=== PATIENT | female | born 1975 | race Hispanic/Latino ===

== ENCOUNTER 2017-02-14 10:48 | Day surgery (SDC) | payer OTHER ==
[2017-02-14 11:12] VITALS: BMI 19.5
[2017-02-14] MEDS ORDERED: methylPREDNISolone Depo 80 mg/ml Inj ONE (12:16)
[2017-02-14] MEDS ORDERED: Iohexol 300 10 ML ONE (12:17)
[2017-02-14] MEDS ORDERED: Bupivacaine HCl 0.25% PF (10 ml) Inj ONE (12:17)
[2017-02-14] MEDS ORDERED: Lidocaine 1% Inj (20ml) ONE (12:17)
[2017-02-14] MEDS ORDERED: Propofol 10 mg/ml Inj (20 ML) ONE (12:51)
[2017-02-14] MEDS ORDERED: Lactated Ringer's 1,000 ML IV ONE (12:55)
[2017-02-14] MEDS ORDERED: HYDROmorphone 0.5 mg/0.5 ml ISec ONE ×2 (13:33→13:46)
[2017-02-14] MEDS ORDERED: HYDROmorphone 0.5 mg/0.5 ml ISec IVP PRN (13:43)
[2017-02-14] MEDS: HYDROmorphone 0.5 mg/0.5 ml ISec IVP PRN ×2 (13:45→14:00)
[2017-02-14] MEDS ORDERED: Lactated Ringer's 1,000 ML IV SCH (13:45)
--- NOTE | 2017-02-14 14:39 | RAD ---
PROCEDURE: Fluoroscopy up to 1 hr. Lumbar epidural injection. HISTORY: PAIN MANAGEMENT COMPARISON: None TECHNIQUE: Standard protocol for this study/examination. FINDINGS: Total fluoroscopic time (continuous mode) utilized during the procedure: 40.4 seconds. Submitted images from the current procedure: 3.0 IMPRESSION: Less than 1 hr fluoroscopic time utilized during performance of the procedure.
[2017-02-14 14:45] VITALS: O2SAT 98
[2017-02-14 14:50] VITALS: BP 143/70; PULSE 68; RESP 18; TEMP 98.2
--- NOTE | 2017-02-15 00:32 | OP ---
PROCEDURE DATE: 02/14/2017 PREOPERATIVE DIAGNOSIS: Lumbar spondylosis. POSTOPERATIVE DIAGNOSIS: Lumbar spondylosis. PROCEDURE: Bilateral L5-S1 transforaminal epidural steroid injection and left L3, L4 and L5 medial branch nerve block. SURGEON: Dr. Wallace. HOT SEALING MACHINE OPERATOR: ANESTHESIA ADMINISTERED: Dr. Koroma. TYPE OF ANESTHESIA: Monitored anesthesia care. COMPLICATIONS: None. SPECIMEN: None. PROCEDURE: After we had discussion of the procedure with the patient including its risks, benefits, alternative, outcome data, possibility of no effect or increased pain, the patient consented to the procedure. She denies any recent infections, bleeding tendencies or being on anticoagulants. Decision was then made to proceed to the OR. The patient was placed on a fluoroscopy table in a prone position with 2 pillows underneath her abdomen. The back was prepped and draped in the usual sterile fashion and sterile technique was adhered during the entire procedure. The L5 vertebral levels were first identified in the anterior and posterior view. Angulation towards the right at approximately 25 degrees was used to maximize the visualization of the right L5 pedicles. The skin overlying the 6 o'clock position of the pedicles was infiltrated with 1% lidocaine using a 25-gauge needle. Subsequently, a 22-gauge 3.5 inch spinal needle was incrementally advanced under fluoroscopic guidance until tip of the needle lay within the intervertebral foramen. After satisfactory positioning of both needles, approximately 1 mL of Isovue contrast was injected showing appropriate epidural nerve root spread without any signs of CSF or intervenous involvement. At this point, approximately 3 mL of 0.25% Marcaine and Depo Medrol mixture was injected. The needle was then removed and same exact procedure was performed on the contralateral left side using the same medications and techniques. Then, the fluoroscopy was turned towards the left at approximately 15 degrees to maximize the visualization of the left L3, L4 and L5 pedicles. The skin overlying the intersection of the superior articular process and the transverse process of all pedicle was infiltrated with 1% lidocaine using a 25-gauge needle. Subsequently, a 22-gauge 3.5 inch spinal needle was incrementally advanced under fluoroscopic guidance until tip of the needle made bony contact with all 3 target areas. After satisfactory positioning of all 3 needles, approximately 2 mL of 0.25% Marcaine and Depo Medrol mixture was injected. The needle was then removed and the patient's back was clean and dry and bandages were applied. The patient was then transferred to recovery area in good conditions without any signs of BUSINESS MANAGEMENT INTERN toxicity or any neurological deficits. She will have a follow up in office in approximately 2 to 4 weeks. En-Barry Wallace MD
== END 2017-02-14 15:10 | disposition home or self-care (01) ==
LOC: H.OPSURG 10:48
PROVIDERS: ATTEND Anesthesiology
DX: M47.896 Other spondylosis, lumbar region (principal); M54.16 Radiculopathy, lumbar region
CPT/HCPCS: 64520; J1040; J1170; J2001; J2704; J7120; Q9967